=== PATIENT | female | born 1945 | race Caucasian/White ===

== ENCOUNTER → 2016-08-31 16:55 | Outpatient (CLI) | payer MEDICARE, BC | END | disposition home or self-care (01) | LOC: D.MAMMO 15:30 | DX: Z12.31 Encounter for screening mammogram for malignant neoplasm of breast (principal) ==

== ENCOUNTER → 2017-09-28 17:54 | Outpatient (CLI) | payer MEDICARE, BC | END | disposition home or self-care (01) | LOC: D.MAMMO 15:00 | DX: Z12.31 Encounter for screening mammogram for malignant neoplasm of breast (principal) ==

== ENCOUNTER → 2018-09-29 08:00 | Outpatient (CLI) | payer MEDICARE, BC | END | disposition home or self-care (01) | LOC: D.MAMMO 08:00 | DX: Z12.31 Encounter for screening mammogram for malignant neoplasm of breast (principal) ==

== ENCOUNTER 2019-10-09 19:10 | Outpatient (CLI) | payer MEDICARE, BC | END 2019-10-09 23:59 | disposition home or self-care (01) | LOC: D.MAMMO 19:10 | PROVIDERS: ATTEND Family Medicine | DX: Z12.31 Encounter for screening mammogram for malignant neoplasm of breast (principal) ==

== ENCOUNTER 2019-12-30 08:49 | Emergency (ER) | payer MEDICARE, BC ==
[~2019-12-30] VITALS: Ht 167.6 cm; Wt 64.5 kg
[2019-12-30 08:53] VITALS: Ht 167.6 cm; Wt 64.5 kg
[2019-12-30] MEDS ORDERED: LIPITOR10 MG PO (08:55)
[2019-12-30 09:15] LABS: BACTERIA MODERATE /hpf (NEGATIVE); BILIRUBIN NEGATIVE (NEGATIVE); GLUCOSE NEGATIVE (NEGATIVE); KETONE NEGATIVE (NEGATIVE); NITRITE NEGATIVE (NEGATIVE); RED CELLS - URINE OCC /hpf (0-5); UROBILINOGEN NORMAL (NORMAL); WHITE CELLS - URINE RARE /hpf (NEGATIVE)
[2019-12-30] MEDS ORDERED: MACROBID100 MG PO (09:26)
[2019-12-30 09:32] LABS: CALC OSMOLALITY 275 mosm/kg (275-300); CALCIUM 9.4 mg/dL (8.5-10.1); CARBON DIOXIDE 26.9 mmol/L (21.0-32.0); CHLORIDE - SERUM 103 mmol/L (98-107); GLUCOSE 95 mg/dL (74-106); POTASSIUM - SERUM 3.4 mmol/L (3.5-5.1); SODIUM 138 mmol/L (136-145); UREA NITROGEN 12 mg/dL (7-18); eGFR NON AFRICAN AMERICAN 57 mL/min (90-120)
[2019-12-30 09:33] LABS: BASOPHILS 0.2 % (0-2); EOSINOPHILS 0.2 % (0-7); HEMATOCRIT 41.2 % (36.0-48.0); HEMOGLOBIN 13.5 g/dL (12-16); IMMATURE GRANULOCYTES 0.1 % (0-5); LYMPHOCYTES 16.7 % (15-50); MCH 28.7 pg (26.0-34.0); MCHC 32.8 g/dL (31.0-37.0); MCV 87.7 fL (80.0-100.0); MEAN PLATELET VOLUME 9.6 fL (7.4-10.4); MONOCYTES 7.4 % (2-11); NEUTROPHILS 75.4 % (40-80); RDW 13.9 % (11.5-14.5); WBC 8.9 10x3/uL (4.8-10.8)
[2019-12-30 09:34] LABS: ALBUMIN 4.2 g/dL (3.4-5.0); ALKALINE PHOSPHATASE 54 U/L (30-120); ALT (SGPT) 21 U/L (10-68); AMYLASE - SERUM 59 U/L (25-115); BILIRUBIN - TOTAL 0.95 mg/dL (0.2-1.3); LIPASE 111 U/L (73-393); PROTEIN - SERUM 8.2 g/dL (6.4-8.2)
[2019-12-30 09:35] LABS: TROPONIN-I < 0.017 ng/mL (0.000-0.060)
[2019-12-30 09:36] LABS: PLATELET COUNT 260 10x3/uL (130-400)
[2019-12-30] MEDS ORDERED: LEVOFLOXACIN500 MG PO (11:27)
[2019-12-30] MEDS ORDERED: FLAGYL500 MG PO (11:27)
[2019-12-30 13:44] VITALS: BP 124/60
== END 2019-12-30 13:45 | disposition home or self-care (01) ==
LOC: D.ER 08:49
PROVIDERS: Family Medicine
DX: K57.32 Diverticulitis of large intestine without perforation or abscess without bleeding (principal); R10.32 Left lower quadrant pain

== ENCOUNTER → 2020-10-10 18:44 | Outpatient (CLI) | payer MEDICARE, BC ==
[2019-12-30 08:53] VITALS: BMI 22.9
[~2020-10-10 18:44] MED LIST: FLAGYL500 MG PO; LEVOFLOXACIN500 MG PO; LIPITOR10 MG PO; MACROBID100 MG PO
== END | disposition home or self-care (01) ==
LOC: D.MAMMO 09-23 09:45
PROVIDERS: ATTEND Family Medicine
DX: Z12.31 Encounter for screening mammogram for malignant neoplasm of breast (principal)